=== PATIENT | female | born 1995 | race Caucasian/White ===

== ENCOUNTER 2016-11-09 10:32 | Emergency (ER) | payer BC, OTHER ==
[~2016-11-09] VITALS: Ht 167.6 cm; Wt 90.7 kg
[~2016-11-09 10:32] MED LIST: ALPR0.252 PO
[2016-11-09 10:43] VITALS: BP 153/83
[2016-11-09] MEDS ORDERED: ESCI5TAB PO (10:46)
--- NOTE | 2016-11-09 11:01 | NUR ---
Patient ambulated to bed 7. SOILS ENGINEER evaluating patient at bedside.
--- NOTE | 2016-11-09 11:04 | NUR ---
Dr. Matos evaluating patient at bedside.
--- NOTE | 2016-11-09 11:05 | NUR ---
21/F c/o vaginal discharge x3 days after using a new sex toy with her girlfriend. Pt also reports a foul odor and had similar symptoms in the past, dx with bacterial vaginosis. Denies painful urination. Denies dysuria. Deneis fever or chills. AOX4, ambulates with steady gait. VSS.
[2016-11-09] MEDS ORDERED: cefTRIAXone 500 MG in LIDOCAINE 1% ED 1 ML IM ONE (11:10)
[2016-11-09] MEDS ORDERED: AZITHROMYCIN 250 MG TAB PO ONE (11:10)
--- NOTE | 2016-11-09 11:36 | NUR ---
Pt moved to bed 8 for pelvic exam.
--- NOTE | 2016-11-09 11:37 | NUR ---
Pelvic exam performed by Dr. Matos with myself at bedside for entire examination. Patient tolerated procedure well. Specimens obtained and sent to lab. Patient assisted to position of comfort after examination.
--- NOTE | 2016-11-09 11:38 | NUR ---
Dr. Matos and female clothing designer at bedside for pelvic exam.
--- NOTE | 2016-11-09 12:02 | NUR ---
Patient appears to be resting comfortably in bed. Vital Signs within normal limits. Respirations even and unlabored.
[2016-11-09 12:48] VITALS: BP 153/83
--- NOTE | 2016-11-09 12:48 | NUR ---
Patient discharged with v/s stable. Written and verbal after care instructions given and explained. Patient verbalized understanding. Ambulatory with steady gait. All questions addressed prior to discharge. Advised to follow up with PMD.
== END 2016-11-09 12:35 | disposition home or self-care (01) ==
LOC: MED 10:32
DX: N76.0 Acute vaginitis (principal); Z71.6 Tobacco abuse counseling
CPT/HCPCS: 81002; 81025; 87070; 87110; 87205; 87210; 87299; 96372; 99284; J0696; J2001

== ENCOUNTER 2017-04-12 16:48 | Emergency (ER) | payer OTHER ==
[~2017-04-12] VITALS: Ht 167.6 cm; Wt 98.2 kg
[~2017-04-12 16:48] MED LIST changes: +ESCI5TAB PO
[2017-04-12 16:53] VITALS: BP 119/65
--- NOTE | 2017-04-12 17:25 | NUR ---
Patient being evaluated by DR RODRIGUES at bedside.
--- NOTE | 2017-04-12 17:29 | NUR ---
PT SEEN BY DR. RODRIGUES, LEFT FACILITY WITHOUT DISCHARGE INSTRUCTIONS. DR. RODRIGUES AWARE.
--- NOTE | 2017-04-12 17:29 | NUR ---
Darryl rice in EDM - 04/12/17 at 1742 by JENIFFER PATIENT ELOPED FROM FACILITY. DISCHARGE INSTRUCTIONS NOT GIVEN TO PATIENT. DR. RODRIGUES NOTIFIED.
== END 2017-04-12 17:29 | disposition home or self-care (01) ==
LOC: MED 16:48
DX: R51 Headache (principal); R53.83 Other fatigue; R11.0 Nausea; F17.210 Nicotine dependence, cigarettes, uncomplicated; Z79.899 Other long term (current) drug therapy
CPT/HCPCS: 81002; 81025; 99282

== ENCOUNTER 2019-07-24 23:32 | Emergency (ER) | payer OTHER ==
[~2019-07-24] VITALS: Ht 170.2 cm; Wt 104.3 kg
[2019-07-24 23:37] VITALS: BP 117/76
[2019-07-25 00:48] LABS: BASOPHILS # (AUTO) 0.1 K/uL (0.00-0.22); BASOPHILS % (AUTO) 0.7 % (0.0-2.0); EOSINOPHILS # (AUTO) 0.1 K/uL (0-0.4); EOSINOPHILS % (AUTO) 1.3 % (0.0-4.0); HEMATOCRIT 40.1 % (36-48); HEMOGLOBIN 13.6 g/dL (12.0-16.0); LYMPHOCYTES # (AUTO) 2.4 K/uL (2.5-16.5); LYMPHOCYTES % (AUTO) 32.7 % (20.5-51.1); MEAN CORPUSCULAR HEMOGLOBIN 31 pg (27-31); MEAN CORPUSCULAR HGB CONC 34 g/dL (33-37); MEAN CORPUSCULAR VOLUME 92.3 fL (80-94); MONOCYTES # (AUTO) 0.5 K/uL (0.8-1.0); MONOCYTES % (AUTO) 6.8 % (1.7-9.3); NEUTROPHILS # (AUTO) 4.3 K/uL (1.8-7.7); NEUTROPHILS % (AUTO) 58.5 % (42.2-75.2); PLATELET COUNT (AUTO) 209 K/uL (140-450); RED BLOOD CELL COUNT(AUTO) 4.35 MIL/uL (4.20-5.40); WHITE BLOOD COUNT (AUTO) 7.3 K/uL (4.8-10.8)
[2019-07-25] MEDS: KETOROLAC 30 MG/ML VIAL IM ONE (01:10)
[2019-07-25 01:40] VITALS: BP 114/72
== END 2019-07-25 01:40 | disposition home or self-care (01) ==
LOC: MED 23:32
DX: R07.9 Chest pain, unspecified (principal); M79.602 Pain in left arm; G89.29 Other chronic pain; R10.9 Unspecified abdominal pain; R01.1 Cardiac murmur, unspecified; F17.210 Nicotine dependence, cigarettes, uncomplicated; Z79.899 Other long term (current) drug therapy
CPT/HCPCS: 36415; 71045; 85025; 93005; 96372; 99284; J1885; Q0092

== ENCOUNTER 2019-08-06 13:51 | Emergency (ER) | payer OTHER ==
[~2019-08-06] VITALS: Ht 170.2 cm; Wt 99.8 kg
[2019-08-06 14:01] VITALS: BP 138/72
--- NOTE | 2019-08-06 14:03 | NUR ---
PT AMBULATED TO BED 02.
[2019-08-06] MEDS ORDERED: PENICILLIN G BENZATHINE L-A 1.2 MU/2 ML SYR IM ONE (14:15)
[2019-08-06 14:54] VITALS: BP 120/99
--- NOTE | 2019-08-06 14:54 | NUR ---
Patient discharged with v/s stable. Written and verbal after care instructions given and explained. Patient alert, oriented and verbalized understanding of instructions. Ambulatory with steady gait. All questions addressed prior to discharge. ID band removed. Patient advised to follow up with PMD. Rx of ibuprofen, prednisone given. Patient educated on indication of medication including possible reaction and side effects. Opportunity to ask questions provided and answered.
== END 2019-08-06 14:54 | disposition home or self-care (01) ==
LOC: MED 13:51
DX: J02.0 Streptococcal pharyngitis (principal); F17.210 Nicotine dependence, cigarettes, uncomplicated
CPT/HCPCS: 81025; 96372; 99283; J0561

== ENCOUNTER 2019-11-29 17:07 | Emergency (ER) | payer OTHER ==
[~2019-11-29] VITALS: Ht 167.6 cm; Wt 107.0 kg
[2019-11-29 17:09] VITALS: BP 123/82
--- NOTE | 2019-11-29 17:17 | NUR ---
24 YO FEMALE CO LYMPH NODE PAIN ONT HE RIGHT SIDE OF HER NECK. NO PAIN WHEN SWALLOWING AND NO VISIBLE SWELLING OBSERVED. NO PMH NO RX
--- NOTE | 2019-11-29 17:27 | NUR ---
ER-PA AT BEDSIDE
[2019-11-29] MEDS ORDERED: KETOROLAC 30 MG/ML VIAL IM ONE (17:35)
--- NOTE | 2019-11-29 17:45 | NUR ---
STREP A SWABS COLLECTED / LAB NOTIFIED
[2019-11-29 18:48] VITALS: BP 123/82
--- NOTE | 2019-11-29 18:49 | NUR ---
PATIENT ELOPED FROM FACILITY. DISCHARGE INSTRUCTIONS NOT GIVEN TO PATIENT. PA. CASTILLO NOTIFIED.
== END 2019-11-29 18:52 | disposition left against medical advice (07) ==
LOC: MED 17:07
DX: J06.9 Acute upper respiratory infection, unspecified (principal); Z79.899 Other long term (current) drug therapy
CPT/HCPCS: 87081; 99281; 99283; J1885

== ENCOUNTER 2022-04-14 19:44 | Emergency (ER) | payer OTHER ==
[~2022-04-14] VITALS: Ht 167.6 cm; Wt 98.9 kg
[2022-04-14 19:55] VITALS: BP 125/76
--- NOTE | 2022-04-14 19:55 | NUR ---
TO BED AMBULATORY
--- NOTE | 2022-04-14 20:04 | NUR ---
Patient BIB by family from home. C/O muscle twitching x 3 days. Patient reported, had muscles twitching for 3 days, patient changed her diet to Keto diet over 3 weeks and lost ~ 20 lbs. No PMHX. Addendum: 04/14/22 at 2020 by [email or web address] Patient BIB by family from home. C/O muscle twitching x 3 days. Patient reported, had muscles twitching for 3 days, patient changed her diet to Keto diet over 3 weeks and lost ~ 20 lbs. PMHX: Anxiety.
--- NOTE | 2022-04-14 20:04 | NUR ---
X-Ray at bedside.
--- NOTE | 2022-04-14 20:48 | NUR ---
Dr. Sparrow examining patient.
--- NOTE | 2022-04-14 21:15 | NUR ---
Urine sample obtained and sent to lab.
[2022-04-14 21:33] LABS: BASOPHILS % (AUTO) 0.7 % (0.0-2.0); EOSINOPHILS # (AUTO) 0.1 K/uL (0-0.4); HEMATOCRIT 39.1 % (36-48); HEMOGLOBIN 13.5 g/dL (12.0-16.0); LYMPHOCYTES # (AUTO) 2.5 K/uL (2.5-16.5); LYMPHOCYTES % (AUTO) 41.6 % (20.5-51.1); MEAN CORPUSCULAR HEMOGLOBIN 32 pg (27-31); MEAN CORPUSCULAR HGB CONC 35 g/dL (33-37); MEAN CORPUSCULAR VOLUME 91.4 fL (80-94); MONOCYTES # (AUTO) 0.6 K/uL (0.8-1.0); MONOCYTES % (AUTO) 9.5 % (1.7-9.3); NEUTROPHILS # (AUTO) 2.9 K/uL (1.8-7.7); NEUTROPHILS % (AUTO) 47.2 % (42.2-75.2); PLATELET COUNT (AUTO) 231 K/uL (140-450); RED BLOOD CELL COUNT(AUTO) 4.27 MIL/uL (4.20-5.40); RED CELL DISTRIBUTION WIDTH 13.4 % (11.6-13.7); WHITE BLOOD COUNT (AUTO) 6.1 K/uL (4.8-10.8)
[2022-04-14 21:51] LABS: BARBITURATE, URINE NEGATIVE ng/ml (NEG <=200); BENZODIAZEPINE, URINE NEGATIVE ng/mL (NEG <=200); CANNABINOID, URINE NEGATIVE ng/mL (NEG <=50); COCAINE, URINE NEGATIVE ng/mL (NEG <=300); OPIATE, URINE NEGATIVE ng/mL (NEG <=2000); PHENCYCLIDINE SCREEN,URINE NEGATIVE ng/mL (NEG <=25)
[2022-04-14 21:53] LABS: ALBUMIN 3.4 g/dL (3.4-5.0); ANION GAP 12.6 (8-16); CARBON DIOXIDE 27.9 mmol/L (21-32); CREATININE 0.8 mg/dL (0.6-1.3); POTASSIUM 3.5 mmol/L (3.5-5.1); TOTAL BILIRUBIN 0.4 mg/dL (0.0-1.0)
[2022-04-14] MEDS ORDERED: CYCL-711 PO (22:15)
[2022-04-14 22:24] VITALS: BP 122/76
--- NOTE | 2022-04-14 22:24 | NUR ---
Patient discharged with v/s stable. Written and verbal after care instructions given and explained for Muscle cramp and spasms. Patient alert, oriented and verbalized understanding of instructions. Ambulatory with steady gait. All questions addressed prior to discharge. ID band removed. Patient advised to follow up with PMD. Rx of Flexeril given. Patient educated on indication of medication including possible reaction and side effects. Opportunity to ask questions provided and answered.
== END 2022-04-14 22:24 | disposition home or self-care (01) ==
LOC: MED 19:44
DX: R25.1 Tremor, unspecified (principal); F17.210 Nicotine dependence, cigarettes, uncomplicated; I10 Essential (primary) hypertension; I25.10 Atherosclerotic heart disease of native coronary artery without angina pectoris; F41.9 Anxiety disorder, unspecified; Z79.899 Other long term (current) drug therapy
CPT/HCPCS: 36415; 71045; 80053; 80305; 81025; 83735; 85025; 93005; 99285